=== PATIENT | male | born 1990 | race Caucasian/White ===

== ENCOUNTER 2024-11-12 08:20 | Emergency (ER) | payer SELFPAY ==
[2024-11-12 08:27] VITALS: BP 138/78; PULSE 94; RESP 19; TEMP 36.6; O2SAT 98; BMI 26.9
--- OUTSIDE RECORDS SUMMARY | 2024-11-12 09:43 | XMS_ITS | Clinical Summary ---
Author Organization [facility] Address [address] [place] [address] Care Team Providers Care Wire Chief Name Role Phone Unavailable Primary Care Provider Unavailabl e Social History Tobacco Use Types Packs/Day Years Used Date Smoking Tobacco: Never Assessed Sex and Gender Information Value Date Recorded Sex Assigned at Not on file Gender Identity Not on file Sexual Orientation Not on file Plan of Treatment Health Maintenance Due Date Last Done Comments DTaP,Tdap,and Td Vaccines (1 - Tdap) 02/04/2007 Hepatitis B Vaccines (1 of 3 - 19+ 3-dose series) 02/04/2007 Cholesterol Screening (Lipid Panel) 09/14/2022 Depression Screening 09/14/2022 HIV Screening 09/14/2022 Hepatitis C Screening 09/14/2022 Social Influencers of Health Screening 09/14/2022 COVID-19 Vaccine (2023-2 5 season) 2024 Influenza Vaccine (#1) 2024 HIB Vaccines Aged Out No longer eligi ble based on patient's age to complete this topic HPV Vaccines Aged Out No longer eligi ble based on patient's age to complete this topic Hepatitis A Vaccines Aged Out No long er eligible based on patient's age to complete this topic IPV Vaccines Aged Out No longer eligi ble based on patient's age to complete this topic MMR Vaccines Aged Out No longer eligi ble based on patient's age to complete this topic Meningococcal ACWY Vaccine Aged Out N o longer eligible based on patient's age to complete this topic Pneumococcal Vaccine: Pediat rics (0 to 5 Years) and At-Risk Patients (6 to 64 Years) Aged Out No longer eligible b ased on patient's age to complete this topic RSV Immunization Patients Un mike 20 months Aged Out No longer eligible b ased on patient's age to complete this topic Varicella Vaccines Aged Out No longer eligible based on patient's age to complete this topic
--- NOTE | 2024-11-12 10:48 | ED_ITS ---
HPI - Back Pain/Injury General Chief Complaint: Back Pain/Injury Stated Complaint: back pain Time Seen by Provider: 11/12/24 10:10 Source: patient, RN notes reviewed and old records reviewed Mode of arrival: ambulatory History of Present Illness ED Provider: Lucía Huddleston PA-C HPI Narrative: 34-year-old male with no significant past medical history presenting to the ED complaining of left low back/buttock pain radiating down LLE x1.5 weeks. Denies known injury/trauma or fall. Reports associated numbness/tingling. Has been taking gabapentin and ibuprofen at home without relief. Denies weakness, incontinence/retention, abdominal pain, hematuria/dysuria Related Data Previous Rx's ?Medication ?Instructions ?Recorded acetaminophen 500 mg tablet 500 mg PO Q6H PRN fever or pain 11/12/24 (Tylenol Extra Strength) #14 tabs cyclobenzaprine 5 mg tablet 5 mg PO Q8H PRN pain (scale score 11/12/24 7-10) 5 days #14 tabs lidocaine 5 % topical patch 1 patch topical DAILY PRN pain #30 11/12/24 (Lidoderm) ea naproxen 500 mg tablet 500 mg PO BID PRN pain 10 days #20 11/12/24 tabs Allergies Allergy/AdvReac Type Severity Reaction Status Date / Time bupropion [From Wellbutrin] Allergy Hives Verified 11/12/24 08:30 Review of Systems Review of Systems: Yes all other systems are reviewed and are negative Constitutional: Constitutional: Reports as per HPI Neurologic: Denies Sensory deficit (Neuro) [facility] Past Medical History Attestation statement: The following information was validated with the patient. Source: old records reviewed Social History Social History Advance Directives: No Advance Directives Information Provided: No Do you have a plan to hurt others: No Plan Physical Exam Vital Signs: Vital Signs: Last Vital Signs Temp 98 F 11/12/24 08:27 Pulse 94 11/12/24 08:27 Resp 19 11/12/24 08:27 BP 138/78 11/12/24 08:27 Pulse Ox 98 11/12/24 08:27 O2 Del Method Room Air 11/12/24 08:27 BMI result Body Mass Index 26.9 Const: General: cooperative, healthy appearing and no acute distress Orientation/consciousness: patient oriented x3 Limitations: no limitations HEENT: Head: Yes normal to inspection and Yes atraumatic Ears: hearing grossly normal bilaterally General nose exam: Normal external nose present Face and sinus: Yes normal facial exam Eyes: General: appearance normal, both eyes and all related structures EOM: EOMs intact bilaterally Neck: Neck: Yes normal visual inspection and Yes no meningeal signs Resp: Effort & Inspection: normal respiratory effort and no respiratory di stress Cardio: Rate: regular rate GI: Inspection: Yes normal to inspection Palpation (GI): Soft to palpation, nontender, no guarding and not rigid : General: Yes no CVA tenderness Back/Spine/Pelvis: Other: No midline cervical/thoracic/lumbar spinous tenderness/step-off or deformity. + reproducible left lower lumbar/buttock pain. No erythema/wounds Back: no CVA tenderness Skin: Rashes: no rashes Wounds: no wounds Neuro: Other: Strength intact throughout. No saddle anesthesia. Sensation intact to light touch. Neurovascular intact distally General: patient oriented x3, gait normal, tone normal, moves all extremities, no meningeal signs and no focal motor deficits Cranial nerves: Yes CN's II-XII intact bilaterally Gait exam (Neuro): Normal gait present Motor exam (neuro): 5/5 motor strength present throughout Sensory Exam: No Sensory deficit (Neuro) Extrem: General: Yes normal to inspection Course Course Course Narrative: -patient reports symptomatic improvement after medications given in the ED. Feels safe for discharge home at this time Results discussed with patient including worrisome signs and symptoms and strict return precautions, and when to return to the emergency department. They verbalized understanding and feel safe for discharge at this time. Medications Administered Discontinued Medications Generic Name Dose Route Start Last Admin Trade Name Freq PRN Reason Stop Dose Admin Cyclobenzaprine HCl 10 mg 11/12/24 10:11/12/24 11:00 Cyclobenzaprine Hcl 10 Mg Tablet PO 11/12/24 10:32 10 mg ONCE ONE Administration Ketorolac Tromethamine 30 mg 11/12/24 10:11/12/24 11:00 Ketorolac Tromethamine 30 Mg/Ml Vial IM 11/12/24 10:32 30 mg ONCE ONE Administration Lidocaine 1 patch 11/12/24 10:11/12/24 11:00 Lidocaine 4 % Patch Adh..Patch TRANSDERMA 11/12/24 10:32 1 patch ONCE ONE Administration Protocol Medical Decision Making Medical Decision Making MDM Narrative: 34-year-old male with no significant past medical history presenting to the ED complaining of left low back/buttock pain radiating down LLE x1.5 weeks. On exam vital signs stable, NAD, nontoxic appearing, physical exam as noted above without midline spinous tenderness or red flag symptoms. Reproducible left buttock tenderness. No saddle anesthesia. Abdomen soft/nontender. No CVAT. Concern for MSK pain/strain/spasming and sciatica. Lower suspicion for fracture, pyelo/renal stone, UTI, cauda equina/cord compression or epidural abscess Plan: Pain control, re-evaluate Please refer to course for remaining clinical decision making, interpretation of labs/imaging results, and discussions with consultants and/or family members. Differential Diagnosis Differential Diagnoses: The differential diagnosis associated with the presentation includes As above External Record Review External record reviewed: Inpatient record, Office record, Outpatient record, Prior outpatient labs, Prior outpatient radiology, Primary care record and Outside ED record Tests considered The following testing was considered but not selected: As above Prescription Management I considered prescription management with: Pain Medication Chronic Conditions Patient?s care impacted by: Other Discharge Plan Discharge Clinical Impression: Lumbar radiculopathy Patient Disposition: Home, Self-Care Instructions: Lumbar Radiculopathy (ED) Additional Instructions: Your pain is likely musculoskeletal Flexeril is a muscle relaxer, take at night as it makes you drowsy, do not drive, drink alcohol, or operate machinery while taking it Naproxen as an anti-inflammatory / pain medication, take with food Lidoderm patches are numbing patches, apply to painful area In addition take Tylenol at home If symptoms persist or worsen, pain becomes unbearable, you developed urinary retention or incontinence, or weakness return to the ED Prescriptions: New acetaminophen [Tylenol Extra Strength] 500 mg tablet 500 mg PO Q6H PRN (Reason: fever or pain) Qty: 14 0RF lidocaine [Lidoderm] 5 % adhesive patch,medicated 1 patch topical DAILY MDD remove after 12 hours PRN (Reason: pain) Qty: 30 0RF Rx Instructions: leave on most painful area for up to 12 hrs naproxen 500 mg tablet 500 mg PO BID PRN (Reason: pain) 10 Days Qty: 20 0RF cyclobenzaprine 5 mg tablet 5 mg PO Q8H PRN (Reason: pain (scale score 7-10)) 5 Days Qty: 14 0RF Referrals: Physician,None [Primary Care Provider] - Print Language: Norwegian
[2024-11-12] MEDS: Lidocaine 4 % Patch ADH..PATCH 1 PATCH TRANSDERMA (11:00)
[2024-11-12] MEDS: Ketorolac Tromethamine 30 MG/ML VIAL IM (11:00)
[2024-11-12] MEDS: Cyclobenzaprine HCl 10 MG TABLET PO (11:00)
[2024-11-12 12:03] VITALS: BP 138/78; PULSE 94; RESP 19; TEMP 36.6; O2SAT 98
== END 2024-11-12 12:04 | disposition home or self-care (01) ==
PROVIDERS: Emergency Provider Emergency Medicine
DX: M54.16 Radiculopathy, lumbar region (principal); M54.50 Low back pain, unspecified
CPT/HCPCS: 96372; 99283; 99284; J1885

== ENCOUNTER 2025-01-16 16:44 | Emergency (ER) | payer MEDICAID, SELFPAY ==
[2025-01-16 16:52] VITALS: BP 162/84; PULSE 104; RESP 16; TEMP 36.9; O2SAT 99
[2025-01-16 16:54] VITALS: BP 158/86; PULSE 101; O2SAT 99; BMI 26.7
--- NOTE | 2025-01-16 16:58 | ED.EPISTAXIS ---
History of Present Illness General Chief Complaint: Epistaxis Stated Complaint: nosebleed since 4 am Time Seen by Provider: 01/16/25 16:56 Source: patient Mode of arrival: ambulatory Limitations: no limitations History of Present Illness HPI Narrative: Patient no significant past medical history noticed bleeding from the left nostril since 04:00 not on any blood thinner has cold symptoms for last 10 days no bruising no ecchymosis Related Data Previous Rx's ?Medication ?Instructions ?Recorded acetaminophen 500 mg tablet 500 mg PO Q6H PRN fever or pain 11/12/24 (Tylenol Extra Strength) #14 tabs cyclobenzaprine 5 mg tablet 5 mg PO Q8H PRN pain (scale score 11/12/24 7-10) 5 days #14 tabs lidocaine 5 % topical patch 1 patch topical DAILY PRN pain #30 11/12/24 (Lidoderm) ea naproxen 500 mg tablet 500 mg PO BID PRN pain 10 days #20 11/12/24 tabs Allergies Allergy/AdvReac Type Severity Reaction Status Date / Time bupropion [From Wellbutrin] Allergy Hives Verified 01/16/25 21:07 Review of Systems Review of Systems: Yes all other systems are reviewed and are negative ON LICENSE OF [facility] Social History Social History Smoked in Last 30 Days: No Use of substances other than those prescribed or required for medical reasons: No Advance Directives: No Advance Directives Information Provided: No Physical Exam Vital Signs: Vital Signs: Last Vital Signs Temp 97.9 F 01/16/25 18:34 Pulse 82 01/16/25 18:34 Resp 16 01/16/25 18:34 BP 155/89 H 01/16/25 18:34 Pulse Ox 99 01/16/25 18:34 O2 Del Method Room Air 01/16/25 18:34 BMI result Body Mass Index 26.7 Appearance: Alert. Oriented X3. No acute distress. Eyes: No pallor or icterus ENT: Pharynx normal. Oral Mucosa moist blood clots in left nostril slight oozing from the anterior [place] area of the left side Neck: Normal inspection. Neck supple. CVS: Normal heart rate and rhythm. Pulses normal. Respiratory: No respiratory distress. Equal air entry bilateral, no wheezing/rales/rhonchi Abdomen: Soft and nontender. Bowel sounds are present, no mass palpable, no CVA tenderness Skin: Skin warm and dry. Normal skin color. Normal skin turgor. Extremities: No lower extremity edema. No calf tenderness Neuro: Oriented X 3. Medications Administered Discontinued Medications Generic Name Dose Route Start Last Admin Trade Name Jesus Manuelq PRN Reason Stop Dose Admin Silver Nitrate 1 appl 01/16/25 17:08 01/16/25 17:12 Silver Nitrate Applicator Stick..Ea. TOPICAL 01/16/25 17:09 1 appl ONCE ONE Administration Medical Decision Making Lab Data [facility] Lab Attestation statement: I reviewed the patient's lab results. 01/16/25 17:23 01/16/25 17:23 Labs: Lab Results 01/16/25 Range/Units 17:23 WBC 10.9 H (4.8-10.8) X10*3/uL RBC 4.53 L (4.60-5.80) X10*6/uL Hgb 14.2 (14.0-18.0) g/dl Hct 39.7 L (42.0-52.0) % MCV 87.6 (80.0-98.0) fL MCH 31.3 (27.0-33.0) pg MCHC 35.8 (31.0-36.0) g/dl RDW 12.7 (11.0-16.0) % Plt Count 487 H (160-400) X10*3/uL MPV 9.3 L (9.4-12.4) fL Immature Gran % (Auto) 0.5 H (0.0-0.4) % Neut % (Auto) 68.9 (45-73) % Lymph % (Auto) 25.1 (20-40) % [place] % (Auto) 4.7 (2-11) % Eos % (Auto) 0.5 (0-4) % Baso % (Auto) 0.3 (0-2) % Lymph # (Auto) 2.7 (1.2-4.9) X10*3/uL [place] # (Auto) 0.5 (0.1-1.2) X10*3/uL Eos # (Auto) 0.1 (0.0-0.4) X10*3/uL Baso # (Auto) 0.0 (0.0-0.2) X10*3/uL Abs Immat Gran (auto) 0.06 H (0.00-0.03) X10*3/uL Absolute Neuts (auto) 7.5 (2.0-8.3) x10*3/uL Absolute Nucleated RBC 0.000 (0.0-0.012) X10*3/uL Nucleated RBC % (auto) 0.0 (0.0-0.2) /100WBC PT 11.9 (10.9-12.4) SEC INR 1.0 (0.9-1.1) Sodium 142 (135-145) mmol/L Potassium 3.4 (3.3-5.1) mmol/L Chloride 106 (96-108) mmol/L Carbon Dioxide 29 (22-29) mmol/L Anion Gap 10 L (12-20) BUN 11 (9-16) mg/dL Creatinine 0.74 (0.5-1.4) mg/dL Estim Creat Clear Calc 151.4 Estimated GFR > 60 Random Glucose 189 H (60-115) mg/dL Calcium 9.2 (8.4-10.2) mg/dL Total Bilirubin 0.3 (0.0-1.0) mg/dL AST 38 H (5-37) U/L ALT 56 H (0-40) U/L Alkaline Phosphatase 59 (39-117) U/L Total Protein 7.2 (6.5-8.0) g/dL Albumin 4.1 (3.5-5.0) g/dL Procedures Epistaxis Control Nostril: Yes left Direct inspection: Yes anterior source identified Direct inspection method: Yes otoscope Clots removed by: Yes blowing nose Epistaxis treatment: Yes silver nitrate cautery Results of treatment: Yes bleeding controlled and Yes treatment well tolerated Complications: Yes none Discharge Plan Discharge Clinical Impression: Epistaxis Patient Disposition: Home, Self-Care Instructions: Nosebleed (ED) Additional Instructions: Local care as advised Follow the PCP if any concerns Prescriptions: No Action acetaminophen [Tylenol Extra Strength] 500 mg tablet 500 mg PO Q6H PRN (Reason: fever or pain) Qty: 14 0RF lidocaine [Lidoderm] 5 % adhesive patch,medicated 1 patch topical DAILY MDD remove after 12 hours PRN (Reason: pain) Qty: 30 0RF Rx Instructions: leave on most painful area for up to 12 hrs naproxen 500 mg tablet 500 mg PO BID PRN (Reason: pain) 10 Days Qty: 20 0RF cyclobenzaprine 5 mg tablet 5 mg PO Q8H PRN (Reason: pain (scale score 7-10)) 5 Days Qty: 14 0RF Interventions: ED Discharge Assessment Last Done: 01/16/25 18:34 Discharge Date/Time: 01/16/25 18:34 Print Language: Bulgarian
[2025-01-16] MEDS: Silver Nitrate Applicator STICK..EA. 1 APPL TOPICAL (17:12)
[2025-01-16 17:28] LABS: MANUAL DIFF FLAG NO
[2025-01-16 17:30] LABS: Basophils Percent Auto 0.3 % (0-2); Eosinophils Absolute Auto 0.1 X10*3/uL (0.0-0.4); Eosinophils Percent Auto 0.5 % (0-4); Hematocrit 39.7 % (42.0-52.0); Hemoglobin 14.2 g/dl (14.0-18.0); Imm Gran Abs Auto 0.06 X10*3/uL (0.00-0.03); Imm Gran Pct Auto 0.5 % (0.0-0.4); Lymphocytes Absolute Auto 2.7 X10*3/uL (1.2-4.9); Lymphocytes Percent Auto 25.1 % (20-40); Mean Corpuscular HGB Conc 35.8 g/dl (31.0-36.0); Mean Corpuscular Hemoglobin 31.3 pg (27.0-33.0); Mean Corpuscular Volume 87.6 fL (80.0-98.0); Mean Platelet Volume 9.3 fL (9.4-12.4); Monocytes Absolute Auto 0.5 X10*3/uL (0.1-1.2); Monocytes Percent Auto 4.7 % (2-11); Neutrophils Absolute Auto 7.5 x10*3/uL (2.0-8.3); Neutrophils Percent Auto 68.9 % (45-73); Platelet Count 487 X10*3/uL (160-400); Red Blood Count 4.53 X10*6/uL (4.60-5.80); Red Cell Distribution Width 12.7 % (11.0-16.0); White Blood Count 10.9 X10*3/uL (4.8-10.8)
[2025-01-16 17:46] LABS: Prothrombin Time 11.9 SEC (10.9-12.4)
[2025-01-16 17:52] LABS: Alanine Aminotransferase 56 U/L (0-40); Albumin Level 4.1 g/dL (3.5-5.0); Alkaline Phosphatase 59 U/L (39-117); Anion Gap 10 (12-20); Aspartate Amino Transferase 38 U/L (5-37); Bilirubin Total 0.3 mg/dL (0.0-1.0); Blood Urea Nitrogen 11 mg/dL (9-16); Calcium 9.2 mg/dL (8.4-10.2); Carbon Dioxide 29 mmol/L (22-29); Chloride 106 mmol/L (96-108); Creatinine Clr Calc Pharmacy 151.4; Estimated Glomerular Filt Rate > 60; Glucose Random 189 mg/dL (60-115); Potassium 3.4 mmol/L (3.3-5.1); Sodium 142 mmol/L (135-145); Total Protein 7.2 g/dL (6.5-8.0)
[2025-01-16 18:08] VITALS: BP 155/89; PULSE 82; RESP 16; TEMP 36.6; O2SAT 99
[2025-01-16 18:34] VITALS: BP 155/89; PULSE 82; RESP 16; TEMP 36.6; O2SAT 99
--- OUTSIDE RECORDS SUMMARY | 2025-01-16 18:54 | XMS_ITS | Clinical Summary ---
Author Organization [facility] Address [address] [place] [address] Care Team Providers Care Pet Walker Name Role Phone Unavailable Primary Care Provider Unavailabl e Social History Tobacco Use Types Packs/Day Years Used Date Smoking Tobacco: Never Assessed Sex and Gender Information Value Date Recorded Sex Assigned at Not on file Legal Sex Male 7:10 AM EST Gender Identity Not on file Sexual Orientation [...] patient's age to complete this topic Meningococcal B Vaccine Aged Out No l onger eligible based on patient's age to complete [...]
== END 2025-01-16 18:34 | disposition home or self-care (01) ==
PROVIDERS: Emergency Provider Internal Medicine
DX: R04.0 Epistaxis (principal)
CPT/HCPCS: 30901; 36415; 80053; 85025; 85610; 99283; 99284

== ENCOUNTER 2025-01-16 21:04 | Emergency (ER) | payer MEDICAID, SELFPAY ==
[2025-01-16 21:05] VITALS: BP 148/98; PULSE 103; RESP 18; TEMP 36.4; O2SAT 97; BMI 25.1
--- OUTSIDE RECORDS SUMMARY | 2025-01-16 22:49 | XMS_ITS | Clinical Summary ---
[facility] Organization [facility] Address [address] [place] [address] Care Team Providers Care Applications Analyst Name Role Phone Unavailable Primary Care Provider [...]
[2025-01-16] MEDS: Tranexamic Acid 1,000 MG/10 ML VIAL 500 MG INTRANASAL (23:11)
--- NOTE | 2025-01-16 23:26 | ED_ITS ---
History of Present Illness General Chief Complaint: Epistaxis Stated Complaint: nosebleed Time Seen by Provider: 01/16/25 22:48 Source: patient Mode of arrival: ambulatory Limitations: no limitations History of Present Illness HPI Narrative: Patient came with recurrence of epistaxis from left nostril just seen and discharged after cauterization of anterior [place] area patient went home and has some blood clots and started bleeding again minor oozing at this time Related Data Previous Rx's ?Medication ?Instructions ?Recorded acetaminophen 500 mg tablet 500 mg PO Q6H PRN fever or pain 11/12/24 (Tylenol Extra Strength) #14 tabs cyclobenzaprine 5 mg tablet 5 mg PO Q8H PRN pain (scale score 11/12/24 7-10) 5 days #14 tabs lidocaine 5 % topical patch 1 patch topical DAILY PRN pain #30 11/12/24 (Lidoderm) ea naproxen 500 mg tablet 500 mg PO BID PRN pain 10 days #20 11/12/24 tabs Allergies Allergy/AdvReac Type Severity Reaction Status Date / Time bupropion [From Wellbutrin] Allergy Hives Verified 01/16/25 21:07 Review of Systems Review of Systems: Yes all other systems are reviewed and are negative [facility] Social History Social History Smoked in Last 30 Days: No Use of substances other than those prescribed or required for medical reasons: No Advance Directives: No Advance Directives Information Provided: No Physical Exam Vital Signs: Vital Signs: Last Vital Signs Temp 97.5 F 01/16/25 21:05 Pulse 103 H 01/16/25 21:05 Resp 18 01/16/25 21:05 BP 148/98 H 01/16/25 21:05 Pulse Ox 97 01/16/25 21:05 O2 Del Method Room Air 01/16/25 21:05 BMI result Body Mass Index 25.1 Appearance: Alert. Oriented X3. No acute distress. Eyes: No pallor or icterus ENT: Pharynx normal. Oral Mucosa moist minor oozing from the left nostril with blood clots Neck: Normal inspection. Neck supple. CVS: Normal heart rate and rhythm. Pulses normal. Respiratory: No respiratory distress. Equal air entry bilateral, no wheezing/rales/rhonchi Abdomen: Soft and nontender. Bowel sounds are present, no mass palpable, no CVA tenderness Skin: Skin warm and dry. Normal skin color. Normal skin turgor. Extremities: No lower extremity edema. No calf tenderness Neuro: Oriented X 3. Medications Administered Discontinued Medications Generic Name Dose Route Start Last Admin Trade Name Freq PRN Reason Stop Dose Admin Oxymetazoline HCl 2 spray 01/16/25 23:26 01/16/25 23:46 Oxymetazoline Hcl 0.05 % Nasal 15 Ml [place] NOSTRIL-B 01/16/25 23:27 2 spray ONCE ONE Administration Tranexamic Acid 500 mg 01/16/25 22:54 01/16/25 23:11 Tranexamic Acid 1,000 Mg/10 Ml Vial INTRANASAL 01/16/25 22:55 500 mg ONCE ONE Administration Medical Decision Making Medical Decision Making [facility] Narrative: Patient has recurrence of left anterior epistaxis just stopped again using Tx a patient was giving Afrin will decrease the congestion Procedures Epistaxis Control Time Out Performed: Yes Nostril: Yes left Nose prepped with: Yes oxymetazoline Direct inspection: Yes anterior source identified Direct inspection method: Yes otoscope Clots removed by: Yes blowing nose Epistaxis treatment: Yes TXA soaked gauze Results of treatment: Yes bleeding controlled Complications: Yes none Discharge Plan Discharge Clinical Impression: Epistaxis Patient Disposition: Home, Self-Care Instructions: Nosebleed (ED) Additional Instructions: Local care as advised Use Afrin nasal decongestant 2- 3 sprays 2 times a day in left nostril for congestion Prescriptions: No Action acetaminophen [Tylenol Extra Strength] 500 mg tablet 500 mg PO Q6H PRN (Reason: fever or pain) Qty: 14 0RF lidocaine [Lidoderm] 5 % adhesive patch,medicated 1 patch topical DAILY MDD remove after 12 hours PRN (Reason: pain) Qty: 30 0RF Rx Instructions: leave on most painful area for up to 12 hrs naproxen 500 mg tablet 500 mg PO BID PRN (Reason: pain) 10 Days Qty: 20 0RF cyclobenzaprine 5 mg tablet 5 mg PO Q8H PRN (Reason: pain (scale score 7-10)) 5 Days Qty: 14 0RF Print Language: Faroese
[2025-01-16] MEDS: Oxymetazoline HCl 0.05 % Nasal 15 ML SPRAY 2 SPRAY NOSTRIL-B (23:46)
[2025-01-17] VITALS: BP 151/90; PULSE 80; RESP 16; TEMP 36.6; O2SAT 98
[2025-01-17 00:35] VITALS: BP 151/90; PULSE 80; RESP 16; TEMP 36.6; O2SAT 98
== END 2025-01-17 00:36 | disposition home or self-care (01) ==
PROVIDERS: Emergency Provider Internal Medicine
DX: R04.0 Epistaxis (principal)
CPT/HCPCS: 99283; 99284